=== PATIENT | male | born 1980 ===

== ENCOUNTER 2025-07-10 06:16 | Day surgery (SDC) | payer BC, SELFPAY ==
--- NOTE | 2025-07-09 15:39 | W.PM.DSUDISC ---
Date of service: 07/10/25 Discharge Plan Disposition Patient Disposition: Home Condition: Good Discharge Details Reason For Visit: screening colonoscopy Attending Provider: Jared Mascorro Primary Care Provider: Inés Fowler Home Meds and New Rx's Prescriptions: Discontinued bisacodyl [Dulcolax (bisacodyl)] 5 mg tablet,delayed release (DR/EC) 5 mg PO ONCE Qty: 4 0RF Rx Instructions: Take per colonoscopy instructions provided by ordering providers office polyethylene glycol 3350 17 gram/dose powder 17 g PO ONCE Qty: 238 0RF Rx Instructions: Take per colonoscopy instructions provided by ordering providers office Discharge Instructions Additional Instructions: Chet, it was good to meet you today, and I hope you feel well after the procedure. Things went very smoothly. Your prep was excellent, and I could see everything fine. I saw no signs of tumors, polyps, or anything else to worry about. With a negative colonoscopy today, I recommend a 10-year interval for your next screening. 1. If tolerated, consume a soft, low fiber diet for 1-2 days. 2[address] Do not drive, drink alcohol, operate machinery, make critical decisions, or do activities that require coordination or balance for 24 hours. 3. Because air was put into your colon during the procedure, expelling air from your rectum (passing gas or farting) is normal. 4. You may not have a bowel movement for 1-3 days because of the colonoscopy prep. This is normal. 5. Go directly to the emergency room if you notice any of the following: Develop chills (warm to touch), or if you have a thermometer and your temperature is above 101 Difficulty breathing or difficultly swallowing Persistent vomiting Severe abdominal pain, other than gas cramps Severe chest pain Black, tarry stools Any bleeding ? exceeding one tablespoon 6. Call your physician if the site where your intravenous was started becomes red, swollen, painful, and warm to touch. 7. Your physician has reviewed your pre-procedure medications. Please continue to take those medications as previously ordered. You will be given specific information/education regarding any changes to your medications before leaving. Stand Alone Forms: Anesthesia Discharge Inst., David Roblero ([facility]), Portal Information Activity:: Activity as Tolerated Diet:: As Tolerated Discharge Orders Discharge Orders: Discharge Order (Routine); Ordered 07/09/25 Ordered By: Jared Mascorro DS: Diagnosis Discharge Diagnosis (1) Encounter for screening colonoscopy: Status: Acute Asessment and Plan: Negative screening colonoscopy. 10-year follow-up
--- NOTE | 2025-07-09 15:42 | W.COLOREPORT ---
Date of service: 07/10/25 Time of Service: 07:55 Colonoscopy Report Date of procedure: 07/10/25 Pre-op diagnosis general: screening colonoscopy Post-op diagnosis procedure note: other (Negative screening colonoscopy) Procedure: colonoscopy Surgeon: Jared Mascorro Anesthesia Type: General:No Airway Pathology: none sent Complications: None Disposition: same day Indications: Chet is a 44 year old man who needs a screening colonoscopy Prep: Miralax/Dulcolax Procedure Start Time: 07:33 Procedure End Time: 07:45 Retraction Time: 6 Findings: Normal colonoscopy Procedure Description: After the induction of monitored anesthetic care, and with evidence in left lateral decubitus position, I began by performing an external anorectal exam.? Perineum and skin were normal, as was the anal verge.? There was no evidence of external hemorrhoids.? Next, I performed a digital rectal exam.? I did not appreciate any abnormal findings.? Next, I advanced a colonoscope into the rectal vault.? I performed retroflexion.? This appeared normal.? Using irrigation, I then advanced the colonoscope beyond the rectal folds and into the sigmoid colon before advancing towards the cecum.? The quality of the prep was outstanding.? The scope was noted to be in the cecum by identification of the ileocecal valve and appendiceal orifice.? I then began withdrawing the colonoscope using repeated irrigation as necessary for full evaluation of the colonic mucosa. ?Once the scope was withdrawn to the level of the rectum, great care was taken to examine portions of the rectal folds.? I saw no signs of tumors or polyps, or any other worrisome pathology. Finally, the scope was withdrawn and the patient was brought to the same-day surgery recovery unit as the anesthetic wore off. ?The findings and instructions were shared with the patient prior to discharge. Underwood Bowel Prep Underwood Bowel Prep Right Colon: 3 Left Colon: 3 Transverse Colon: 3 Total Score: 9
[2025-07-10 06:20] VITALS: BP 117/79; PULSE 52; RESP 18; TEMP 36.4; O2SAT 100
--- NOTE | 2025-07-10 06:59 | W.ANESPRE ---
General Info Date of Service Date Performed: 07/10/25 Height: 6 ft 5 in Weight: 98.1 kg Body Mass Index (BMI): 25.6 Surgical Procedure: Operation Date: 07/10/25 07:35 Proposed Procedure Side Surgeon p Esther Mascorro MD Meds Allergies and Home Medications Allergies Allergy/AdvReac Type Severity Reaction Status Date / Time No Known Allergies Allergy Verified 07/10/25 06:38 Current Visit Medications: Current Medications Generic Name Dose Route Start Last Admin Trade Name Freq PRN Reason Stop Dose Admin Ringer's Solution 1,000 mls @ 80 mls/hr 07/10/25 06:00 IV 07/10/25 23:59 INFUSION MARIA ANTONIA Sodium Chloride 0 ml 07/10/25 06:00 Normal Saline Flush 10 Ml Syr IV 07/10/25 23:59 PRN PRN Sodium Chloride 0 ml 07/10/25 06:00 Normal Saline 10 Ml Vial IJ 07/10/25 23:59 DIRECTED PRN Sterile Water 0 ml 07/10/25 06:00 Water,Injection,Sterile 10 Ml Vial IJ 07/10/25 23:59 DIRECTED PRN PFSH Active Problems Active Problems: Problem Status Onset Code Encounter for screening colonoscopy Acute Z12.11 Surgical History Surgical History History of ankle surgery R Tobacco Smoking/Tobacco Use Status: Never Alcohol Alcohol Intake: current Alcohol intake frequency: a few times a week Alcohol type: wine Substance Use Substance use type: does not use Vital Signs and Lab Results Vital Signs Most Recent Vital Signs in EMR: Most Recent Vital Signs Temp Pulse Resp BP Pulse Ox 36.4 C L 52 L 18 117/79 100 07/10/25 06:20 07/10/25 06:20 07/10/25 06:20 07/10/25 06:20 07/10/25 06:20 Anesthesia Assessment and Plan Anesthesia History Personal History: No History of Anesthesia Complications Family History: No Family History of Anesthesia Complications Exercise Tolerance Exercise Tolerance: Metabolic Equivalents>4 Pertinent Negatives Pertinent Negatives: No Symptoms of GERD Cardiac & Pulmonary Exam Cardiac Exam: Normal S1/S2 Heart Sounds Pulmonary Exam: Clear Bilateral Breath Sounds Implantable Cardiac Device Does patient have a Pacemaker or an ICD?: No Airway Exam Known Difficult Airway: No Mallampati Class: 2 Mouth Opening: Normal (> 3cm) Thyromental Distance: Greater than 3 cm Neck Range of Motion: Full ROM Neck Circumference: Normal Teeth Condition: Normal Dentition ASA Classification ASA Score: ASA 2 Emergency Case?: No NPO Status NPO Status: NPO Clears >2 hours, Solids >8 hours Anesthesia Plan Resuscitation Status: Full Code Anesthesia Technique: General Anesthesia Airway Planned: Natural Airway Monitors Used: Standard Monitors
[2025-07-10 07:00] VITALS: BMI 25.6
[2025-07-10] MEDS: Lactated Ringers 1,000 ML 80 ML IV (07:01)
--- NOTE | 2025-07-10 07:22 | W.PREOPHP ---
Assessment and Plan Assessment and plan (1) Encounter for screening colonoscopy: Status: Acute Assessment and plan: We reviewed the plan for screening colonoscopy, and have not had a chance to ask any questions. All these were answered. We can proceed with colonoscopy as scheduled. History of Present Illness History of Present Illness Chief Complaint: Screening colonoscopy Narrative: 44 y/o male presents for colonoscopy screening pre-op. He denies a family history of colon cancer. He denies any changes in bowel habits including bloody or black tarry stools, abdominal pain, diarrhea or constipation. He denies constitutional symptoms. He denies chest pain, palpitations, dyspnea or dyspnea with exertion. He denies prior history or family history of adverse reactions or complications with anesthesia. The patient denies any history of stroke, MS, seizures, bleeding or clotting disorders. He denies having any implanted metal in his body. PFSH All Active Problems Encounter for screening colonoscopy (Acute) Surgical History History of ankle surgery R Social History (Updated 05/07/25 @ 10:46 by ZORAIDA Markham) Smoking/Tobacco Use Status: Never Smoking risk assessment performed?: Yes Alcohol Intake: current Alcohol Intake frequency: a few times a week Alcohol type: wine Substance use type: does not use Housing: house Meds Allergies and Home Medications Allergies Allergy/AdvReac Type Severity Reaction Status Date / Time No Known Allergies Allergy Verified 07/10/25 06:38 Exam Const General: cooperative and not in acute distress Neck Neck: normal visual inspection, no lymphadenopathy and supple Resp Effort & Inspection: normal respiratory effort Auscultation: clear to auscultation bilaterally Cardio Jugular venous pressure: no JVD Rate: regular rate Rhythm: regular rhythm Heart Sounds: S1 normal and S2 normal GI Inspection: normal to inspection Palpation: soft, no guarding, no hernias and nontender Percussion: normal to percussion Auscultation: normal bowel sounds Neuro General: patient alert, patient awake and patient oriented x3 Psych Appearance: grossly normal Results Last Vital Signs Temp 97.5 F L 07/10/25 06:20 Pulse 52 L 07/10/25 06:20 Resp 18 07/10/25 06:20 BP 117/79 07/10/25 06:20 Pulse Ox 100 07/10/25 06:20
[2025-07-10 07:51] VITALS: BP 113/72; PULSE 64; RESP 14; TEMP 36.2; O2SAT 98
[2025-07-10 08:20] VITALS: BP 111/73; PULSE 54; RESP 12; TEMP 36.1; O2SAT 99
--- NOTE | 2025-07-10 08:46 | W.ANESPOSTOP ---
Postoperative Evaluation Date, Time and Location Date Performed: 07/10/25 Time Performed: : Patient Location: Day Surgery Unit Vital Signs Most Recent Imported Vital Signs: Most Recent Vital Signs Temp Pulse Resp BP Pulse Ox 36.1 C L 54 L 12 111/73 99 07/10/25 08:20 07/10/25 08:20 07/10/25 08:20 07/10/25 08:20 07/10/25 08:20 Pain Score Most Recent Pain Score: Most Recent Pain Score Pain Level 0 07/10/25 08:20 Assessment Mental Status: Awake (Alert & Oriented to Patient Baseline) Airway and Respiratory Function: Patent airway with normal (patient baseline) respiratory exam Cardiovascular Function: Hemodynamically Stable Hydration Status: Adequately Hydrated Nausea & Vomiting: No Nausea or Vomiting Pain: Pt. Denies Any Pain Peripheral Nerve Block: Patient did not receive a nerve block
== END 2025-07-10 08:28 | disposition home or self-care (01) ==
LOC: SUR 06:17
PROVIDERS: PCP Nurse Practitioner Family; Visit Provider Surgery
PROC: 0DJD8ZZ Inspection of Lower Intestinal Tract, Via Natural or Artificial Opening Endoscopic (ICD-10-PCS; CPT 45378; principal; 2025-07-10 07:30)
DX: Z12.11 Encounter for screening for malignant neoplasm of colon (principal)
CPT/HCPCS: 45378; J2704